=== PATIENT | female | born 1975 | race Caucasian/White ===

== ENCOUNTER 2019-11-04 23:03 | Emergency (ER) | payer OTHER, SELFPAY ==
--- NOTE | 2019-11-04 23:06 | PC.NURSE ---
entered room to initiate IV. pt demanded to know what I was doing. informed pt I was present to start an iv for her complaints of migraine. she stated no you're not; I know what works for me and it is stadol....this and this . I said so you would rather have 3-4 intramuscular injections than have one IV injection and medications through that . 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 I informed her that if we were giving her the meds she listed, the md had to be present to order those and it would be a little bit and was that ok. she stated yes.
[2019-11-04 23:13] VITALS: BP 140/69; PULSE 76; RESP 16; TEMP 36.9; O2SAT 100; BMI 27.3
[2019-11-04 23:45] VITALS: BP 100/41; PULSE 72; RESP 16; O2SAT 100
--- NOTE | 2019-11-04 23:59 | PC.NURSE ---
went in room and offered meds to patient. pt stated no, I want ___,___, & ___. Md states again what he wants to give her and she refused. left room. no additional verbage was offered. pt then proceeded to stomp out of her room and come to the nurses stationg. she loudly declared that you all know nothing, i will drive back to [place] and get the stadol and ___ and ___ I wanted . She ambulated sharon and left of own accord.
[2019-11-05 00:13] VITALS: BP 121/75; PULSE 78; RESP 18; TEMP 36.8; O2SAT 98
== END 2019-11-05 00:17 | disposition left against medical advice (07) ==
PROVIDERS: Emergency Provider Family Medicine
DX: Z53.21 Procedure and treatment not carried out due to patient leaving prior to being seen by health care provider (principal); G43.909 Migraine, unspecified, not intractable, without status migrainosus
CPT/HCPCS: 99283